=== PATIENT | male | born 1945 | race Caucasian/White ===

== ENCOUNTER 2017-02-13 12:52 | Emergency (ER) | payer OTHER ==
[~2017-02-13] VITALS: Ht 175.3 cm; Wt 74.4 kg
[~2017-02-13 12:52] MED LIST: AMLO5TAB22 PO; ASPI81 PO; HYDR-3533 PO; LEVO75TA3 PO; LISI-360 PO; POLY255S PO; PRAV10 PO; PRED50 PO; VITA200017 PO
[2017-02-13 13:01] VITALS: BP 183/82; PULSE 70; RESP 16; TEMP 98.1; O2SAT 99
[2017-02-13] MEDS ORDERED: ASPI81CH CHEW (13:14)
[2017-02-13] MEDS ORDERED: LEVO.075 PO (13:14)
[2017-02-13] MEDS ORDERED: LISI-515 PO (13:14)
[2017-02-13] MEDS ORDERED: SODIUM CHLOR 0.9% 1000 ML INJ 1,000 ML IV SCH (14:06)
[2017-02-13] MEDS ORDERED: ONDANSETRON HCL 4 MG/2 ML VIAL IVP ONE (14:15)
[2017-02-13] MEDS ORDERED: FAMOTIDINE 20 MG/2 ML VIAL IV PUSH ONE (14:15)
[2017-02-13] MEDS ORDERED: MORPHINE SULFATE 4 MG/ML INJ IV PUSH ONE (14:15)
[2017-02-13] MEDS ORDERED: SODIUM CHLORIDE 0.9% FLUSH 10 ML FLUSH IV FLUSH PRN (14:15)
--- NOTE | 2017-02-13 14:15 | PD ---
HPI Chief Complaint: Abdominal Pain Time Seen by Provider: 13:59 Travel History International Travel<30 days: No Contact w/Intl Traveler<30days: No Traveled to known affect area: No History of Present Illness HPI 71-year-old male complains of abdominal pain. Patient states that he started having left low quadrant abdominal pain 2 weeks ago. Patient states that the pain is sharp pain localized to left low quadrant abdomen. Patient denies any pain radiation. Patient states that he has nausea but no vomiting. Patient complains of constipation. Patient was seen at local urgent care center 10 days ago and was given prescription for Cipro for diagnosis of possible diverticulitis. Patient took Cipro for 1 week. Patient states that he has persistent pain despite taking the medication. Patient denies any fever chills. Patient denies any dysuria or frequency. Patient denies any back pain. Patient has history of hypothyroidism and hypertension. Patient on aspirin 81 mg daily, Synthroid and lisinopril. On a scale of 1-10 the pain is a 7. PFSH Past Medical History Hx Anticoagulant Therapy: Yes (ASA 81MG DAILY) Arthritis: Yes Asthma: No Autoimmune Disease: No Blood Disorders: No Anxiety: No Depression: No Heart Rhythm Problems: No Cancer: Yes (PROSTATE,SKIN) Cardiac Catheterization: Yes (ANGIOPLASTY 12/2005) Cardiovascular Problems: Yes High Cholesterol: Yes Chemotherapy: No Chest Pain: Yes Congestive Heart Failure: No COPD: No Cerebrovascular Accident: No Diabetes: No Diminished Hearing: No Endocrine: Yes Gastrointestinal Disorders: Yes GERD: Yes Glaucoma: No Genitourinary: Yes Headaches: No Hepatitis: No Hiatal Hernia: Yes Hypertension: Yes Immune Disorder: No Kidney Stones: No Musculoskeletal: Yes Neurologic: No Psychiatric: No Reproductive: No Respiratory: No Migraines: No Myocardial Infarction: Yes Radiation Therapy: No Renal Failure: No Seizures: No Sickle Cell Disease: No Sleep Apnea: No Thyroid Disease: Yes Ulcer: No Tetanus Vaccination: < 5 Years Influenza Vaccination: Yes Past Surgical History Abdominal Surgery: Yes (APPENDECTOMY, PT NOT SURE) AICD: No Appendectomy: Yes Arteriovenous Shunt: No Cardiac Surgery: Yes (STENTS, CABG 08/15/08) Cholecystectomy: Yes 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) Coronary Stent: Yes (STENTS PLACED BY DR WHITT) Ear Surgery: No Endocrine Surgery: No Eye Surgery: No Genitourinary Surgery: Yes (PROSTECTOMY 2001) Gynecologic Surgery: No Insulin Pump: No Joint Replacement: No Oral Surgery: No Pacemaker: No Prostatectomy: Yes Thoracic Surgery: No Other Surgery: Yes Social History Alcohol Use: Yes (occasional ) Tobacco Use: No Substance Use: No Allergies-Medications (Allergen,Severity, Reaction): Coded Allergies: atenolol (Unverified Allergy, Severe, MUSCLE PAIN, 02/13/17) omeprazole (Unverified Allergy, Severe, PAIN IN SHOULDERS, 02/13/17) metoprolol (Unverified Adverse Reaction, Severe, HYPOTENSION AND BRADYCARDIA, 02/13/17) Reported Meds & Prescriptions Reported Meds & Active Scripts Active Reported Lisinopril 20 Mg Tab 20 Mg PO DAILY Aspirin 81 Mg Chew 81 Mg CHEW DAILY Synthroid (Levothyroxine Sodium) 75 Mcg Tab 75 Mcg PO DAILY Review of Systems General / Constitutional: No: Fever Eyes: No: Visual changes HENT: No: Headaches Cardiovascular: No: Chest Pain or Discomfort Respiratory: No: Shortness of Breath Gastrointestinal: Positive: Abdominal Pain Genitourinary: No: Dysuria Musculoskeletal: No: Pain Skin: No Rash Neurologic: No: Weakness Psychiatric: No: Depression Endocrine: No: Polydipsia Hematologic/Lymphatic: No: Easy Bruising Physical Exam Narrative GENERAL: Well-nourished, well-developed patient. SKIN: Focused skin assessment warm/dry. HEAD: Normocephalic. EYES: No scleral icterus. No injection or drainage. NECK: Supple, trachea midline. No JVD or lymphadenopathy. CARDIOVASCULAR: Regular rate and rhythm without murmurs, gallops, or rubs. RESPIRATORY: Breath sounds equal bilaterally. No accessory muscle use. GASTROINTESTINAL: Abdomen soft, nondistended. Patient has moderate tenderness on palpation left low quadrant of the abdomen. Questionable rebound tenderness. No mass. MUSCULOSKELETAL: No cyanosis, or edema. BACK: Nontender without obvious deformity. No CVA tenderness. Neurologic exam: Normal. Data Data Last Documented VS Vital Signs Date Time Temp Pulse Resp B/P (MAP) Pulse Ox O2 Delivery O2 Flow Rate FiO2 02/13/17 15:21 98 Room Air 02/13/17 14:15 20 02/13/17 13:01 98.1 70 183/82 (115) Orders Orders Complete Blood Count With Diff (02/13/17 14:06) Comprehensive Metabolic Panel (02/13/17 14:06) Lipase (02/13/17 14:06) Prothrombin Time / Inr (Pt) (02/13/17 14:06) Act Partial Throm Time (Ptt) (02/13/17 14:06) Urinalysis - C+S If Indicated (02/13/17 14:06) Ct Abd/Pel W Iv Contrast(Rout) (02/13/17 14:06) Iv Access Insert/Monitor (02/13/17 14:06) Ecg Monitoring (02/13/17 14:06) Oximetry (02/13/17 14:06) Morphine Inj (Morphine Inj) (02/13/17 14:15) Ondansetron Inj (Zofran Inj) (02/13/17 14:15) Sodium Chlor 0.9% 1000 Ml Inj (Ns 1000 M (02/13/17 14:06) Sodium Chloride 0.9% Flush (Ns Flush) (02/13/17 14:15) Famotidine Inj (Pepcid Inj) (02/13/17 14:15) Iohexol 350 Inj (Omnipaque 350 Inj) (02/13/17 15:45) Labs Laboratory Tests Test 02/13/17 14:34 02/13/17 16:44 White Blood Count 8.4 TH/MM3 Red Blood Count 5.14 MIL/MM3 Hemoglobin 15.3 GM/DL Hematocrit 46.6 % Mean Corpuscular Volume 90.6 FL Mean Corpuscular Hemoglobin 29.7 PG Mean Corpuscular Hemoglobin Concent 32.8 % Red Cell Distribution Width 12.8 % Platelet Count 207 TH/MM3 Mean Platelet Volume 10.0 FL Neutrophils (%) (Auto) 66.4 % Lymphocytes (%) (Auto) 23.1 % Monocytes (%) (Auto) 9.0 % Eosinophils (%) (Auto) 0.9 % Basophils (%) (Auto) 0.6 % Neutrophils # (Auto) 5.5 TH/MM3 Lymphocytes # (Auto) 1.9 TH/MM3 Monocytes # (Auto) 0.8 TH/MM3 Eosinophils # (Auto) 0.1 TH/MM3 Basophils # (Auto) 0.1 TH/MM3 CBC Comment DIFF FINAL Differential Comment Prothrombin Time 10.8 SEC Prothromb Time International Ratio 1.0 RATIO Activated Partial Thromboplast Time 25.4 SEC Blood Urea Nitrogen 23 MG/DL Creatinine 1.40 MG/DL Random Glucose 99 MG/DL Total Protein 7.8 GM/DL Albumin 4.2 GM/DL Calcium Level 9.5 MG/DL Alkaline Phosphatase 63 U/L Aspartate Amino Transf (AST/SGOT) 35 U/L Alanine Aminotransferase (ALT/SGPT) 50 U/L Total Bilirubin 0.7 MG/DL Sodium Level 139 MEQ/L Potassium Level 4.3 MEQ/L Chloride Level 102 MEQ/L Carbon Dioxide Level 30.2 MEQ/L Anion Gap 7 MEQ/L Estimat Glomerular Filtration Rate 50 ML/MIN Lipase 100 U/L Urine Collection Type CLEAN CATCH Urine Color YELLOW Urine Turbidity CLEAR Urine pH 6.0 Urine Specific [place] 1.010 Urine Protein NEG mg/dL Urine Glucose (UA) NEG mg/dL Urine Ketones TRACE mg/dL Urine Occult Blood NEG Urine Nitrite NEG Urine Bilirubin NEG Urine Leukocyte Esterase NEG Urine Squamous Epithelial Cells 0-5 /hpf Microscopic Urinalysis Comment CULT NOT INDICATED Urine Collection Time 16:44 MDM Medical Decision Making Medical Screen Exam Complete: Yes Emergency Medical Condition: Yes Interpretation(s) 1631 PM. Last Impressions Abdomen/Pelvis CT 02/13/17 1406 Signed Impressions: Service Date/Time: Monday, February 13, 2017 15:38 - CONCLUSION: Negative for acute process. I do not see an etiology for the pain. Juan David Matthews MD FACR 1631 PM. CBC within normal limit. CMP within normal limit. BUN 23. Creatinine 1.4. 1743 PM. UA is negative. Differential Diagnosis Differential diagnosis including diverticulitis, UTI, pyelonephritis, nephrolithiasis. Narrative Course 71-year-old male with left low quadrant abdominal pain. Patient was on Cipro recently for diverticulitis. Normal saline solution 1 25 cc an hour. Morphine 2 mg IV. Zofran 4 mg IV. Diagnosis Primary Impression: Abdominal pain Qualified Codes: R10.32 - Left lower quadrant pain Additional Impression: Renal insufficiency Patient Instructions: General Instructions Additional Instructions: Robaxin as needed for aching pain. Follow-up with personal physician. Return if worse. Med/Other Pt SpecificInfo: Prescription(s) given Scripts Methocarbamol (Robaxin) 750 Mg Tab 750 MG PO QID for Muscle Spasm, #40 TAB 0 Refills Prov: Glen Steinberg MD 02/13/17 Disposition: 01 DISCHARGE HOME Condition: Stable Glen Steinberg MD Feb 13, 2017 14:15
[2017-02-13 14:43] LABS: AUTOMATED NEUTROPHIL # 5.5 TH/MM3 (1.8-7.7); BASOPHIL # 0.1 TH/MM3 (0-0.2); BASOPHIL % 0.6 % (0.0-2.0); EOSINOPHIL # 0.1 TH/MM3 (0-0.4); EOSINOPHIL % 0.9 % (0.0-4.0); HEMATOCRIT 46.6 % (39.0-51.0); HEMO FLAGS DIFF FINAL; LYMPH % 23.1 % (9.0-44.0); LYMPHOCYTE # 1.9 TH/MM3 (1.0-4.8); MEAN CELL VOLUME 90.6 FL (80.0-100.0); MEAN CORPUSCULAR HEMOGLOBIN 29.7 PG (27.0-34.0); MEAN CORPUSCULAR HGB CONC 32.8 % (32.0-36.0); NEUT % 66.4 % (16.0-70.0); PLATELET COUNT 207 TH/MM3 (150-450); RED BLOOD COUNT 5.14 MIL/MM3 (4.50-5.90); RED CELL DISTRIBUTION WIDTH 12.8 % (11.6-17.2); WHITE BLOOD COUNT 8.4 TH/MM3 (4.0-11.0)
[2017-02-13 15:11] LABS: APTT (PATIENT) 25.4 SEC (24.3-30.1); PROTHROMBIN TIME - PATIENT 10.8 SEC (9.8-11.6)
[2017-02-13 15:17] LABS: CHLORIDE 102 MEQ/L (98-107); POTASSIUM 4.3 MEQ/L (3.5-5.1); SODIUM (NA) 139 MEQ/L (136-145)
[2017-02-13 15:21] VITALS: O2SAT 98
[2017-02-13 15:21] LABS: ANION GAP 7 MEQ/L (5-15); BICARBONATE 30.2 MEQ/L (21.0-32.0); BLOOD UREA NITROGEN 23 MG/DL (7-18)
[2017-02-13 15:23] LABS: ALT (GPT) 50 U/L (12-78); AST (GOT) 35 U/L (15-37)
[2017-02-13 15:24] LABS: GLOMERULAR FILTRATION RATE 50 ML/MIN (>89)
[2017-02-13 15:25] LABS: TOTAL BILIRUBIN ADULT 0.7 MG/DL (0.2-1.0)
[2017-02-13 15:26] LABS: ALKALINE PHOSPHATASE 63 U/L (45-117)
[2017-02-13] MEDS ORDERED: IOHEXOL 350 MG/ML 10 ML VIAL (for RAD DIAG) IVCONTRAST ONE (15:45)
--- NOTE | 2017-02-13 16:06 | RADRPT ---
EXAM DATE/TIME: 02/13/2017 15:38 [facility] COMPARISON: CT ABDOMEN & PELVIS W CONTRAST, April 13, 2014, 12:44. INDICATIONS : Left lower quadrant pain x 2 weeks. Nausea. Constipation. IV CONTRAST: 85 cc Omnipaque 350 (iohexol) IV ORAL CONTRAST: No oral contrast ingested. RADIATION DOSE: 8.96 CTDIvol (mGy) MEDICAL HISTORY : Carcinoma, prostate. Gastroesophageal reflux disease. Myocardial infarction.Hiatal hernia. Hypertens ion. SURGICAL HISTORY : CABG Prostatectomy.Cholecystectomy.Appendectomy. ENCOUNTER: Initial ACUITY: 2 weeks PAIN SCALE: 6/10 LOCATION: Left lower quadrant TECHNIQUE: Volumetric scanning of the abdomen and pelvis was performed. Using automated exposure control and ad justment of the mA and/or kV according to patient size, radiation dose was kept as low as reasonably achievable to obtain optimal diagnostic quality images. DICOM format image data is available electro nically for review and comparison. FINDINGS: Lung base are clear. The liver, spleen, pancreas and adrenal glands are unremarkable There is symmetrical renal function Small 1 cm cyst right kidney Moderate vascular calcifications are noted There is no retroperitoneal adenopathy Pelvic contents are unremarkable in spite of history of prostate cancer Review of bone windows reveals degenerative changes in the osseous skeleton without bony metastatic d isease. CONCLUSION: Negative for acute process. I do not see an etiology for the pain. Juan David Matthews MD FACR on February 13, 2017 at 16:02 Board Certified Radiologist. This report was verified electronically.
[2017-02-13 16:47] LABS: BLOOD, URINE NEG (NEG); GLUCOSE,URINE NEG (NEG); KETONE, URINE TRACE mg/dL (NEG); NITRITE,URINE NEG (NEG)
[2017-02-13 16:59] LABS: METHOD OF COLLECTION CLEAN CATCH; URINE COLOR YELLOW (YELLW/STRAW)
[2017-02-13 17:00] LABS: COMMENT (UR) CULT NOT INDICATED; CULTURE IF INDICATED CULT NOT INDICATED; SQUAMOUS EPITHELIAL CELL URINE 0-5 /hpf (0-5)
[2017-02-13] MEDS ORDERED: ROBA750T PO (17:48)
[2017-02-13 17:56] VITALS: BP 150/76
== END 2017-02-13 18:14 | disposition home or self-care (01) ==
LOC: PHED 12:52
DX: R10.32 Left lower quadrant pain (principal); N28.9 Disorder of kidney and ureter, unspecified; R11.0 Nausea; K59.00 Constipation, unspecified; E03.9 Hypothyroidism, unspecified; I10 Essential (primary) hypertension; E78.00 Pure hypercholesterolemia, unspecified; I25.2 Old myocardial infarction; Z79.82 Long term (current) use of aspirin; Z87.39 Personal history of other diseases of the musculoskeletal system and connective tissue; Z86.79 Personal history of other diseases of the circulatory system; Z87.19 Personal history of other diseases of the digestive system; Z87.448 Personal history of other diseases of urinary system; Z85.46 Personal history of malignant neoplasm of prostate; Z85.828 Personal history of other malignant neoplasm of skin
CPT/HCPCS: 74177; 80053; 81001; 83690; 85025; 85610; 85730; 96361; 96374; 96375; 99285; J2270; J2405; J7030; Q9967